=== PATIENT | female | born 1950 | race Caucasian/White ===

== ENCOUNTER 2017-06-05 06:39 | Outpatient (CLI) | END 2017-06-05 06:40 | disposition home or self-care (01) | LOC: CAR 06:39 | PROVIDERS: ATTEND Internal Medicine | DX: R06.02 Shortness of breath (principal); I10 Essential (primary) hypertension; E78.5 Hyperlipidemia, unspecified; R53.83 Other fatigue | CPT/HCPCS: 93005; 93010 ==

== ENCOUNTER 2017-06-06 06:44 | Outpatient (CLI) ==
--- NOTE | 2017-06-06 08:33 | STRESSMOD ---
Ordering Physician: CAMELIA CUEVAS Date of Test: 06/06/17 Medical History: SOB, HTN, DYSLIPIDEMIA, FATIGUE Current Medications: PROTONIX, NORVASC, XANAX, COZAAR, LASIX, METOPROLOL Physical Findings: S2, S2 Resting EKG: SINUS RHYTHM/NO ACUTE CHANGES Target Heart Rate: 129/152 STAGE MPH/GRADE HEART RATE BPM BLOOD PRESSURE mmhg RHYTHM S-T SEGMENT UP DOWN SYMPTOMS,COMMENTS At Rest 80 140/82 SR X NONE 1 1.7/0% 102 150/92 SR X NONE 2 1.7/5% 3 1.7/10% 4 2.5/12% 5 3.4/14% 6 4.2/16% 7 5.18% Immediately after 110 SR X SHORT OF BREATH Total Time: 5:13 Maximum Heart Rate Reached: 110 Reason for Termination: SHORT OF BREATH 3 MINUTES POST EXERCISE: HR 76 BPM, BP 140/90 MMHG INTERPRETATION: 93% OXYGEN SATURATION ON ROOM AIR WITH EXERCISE METS 3.6 1. NO EVIDENCE OF ISCHEMIA BY ST-T WAVE (HEART RATE - 80/BPM RESTING TO 110/BPM WITH EXERCISE) 2. NO CHEST PAIN OR CHEST DISCOMFORT 3. NO ARRHYTHMIAS 4. BLOOD PRESSURE RESPONSE: ADEQUATE NORMAL LEFT VENTRICULAR CONTRACTILITY--RESTING AND POST EXERCISE MTDD
--- NOTE | 2017-06-06 08:43 | ECHOSTRESS ---
Date of Exam: 06/06/17 Ordering Physician: CAMELIA CUEVAS Reason for Echo: SOB, HTN, DYSLIPIDEMIA, FATIGUE, STRESS TEST--NO ISCHEMIA M-Mode Normal Adult Results LV Dimensions Normal Adult Results AoV Opening excursions >1.6 LVEDD-base- 3.5-5.8 Ao root dimensions 2.0-3.7 LVESD-base- 3.1-4.6 L. Atrium dimensions 1.9-3.8 Post. Wall thickness 0.8-1.1 IV septum (thickness) 0.7-1.2 Post. Wall excursion 0.72-1.3 Septal motion Systolic motion R. Ventricular cavity 1.5-2.0 LVEF 60% Paradoxical septal wall motion 2-D: NORMAL LEFT VENTRICULAR CONTRACTILITY--RESTING AND POST EXERCISE M-MODE: MV: AV: TV: PV: CHAMBER SIZE: WALL MOTION: NORMAL LEFT VENTRICULAR CONTRACTILITY--RESTING AND POST EXERCISE PERICARDIUM: INTERPRETATION: 1. NORMAL LEFT VENTRICULAR CONTRACTILITY--RESTING AND POST EXERCISE MTDD
--- NOTE | 2017-06-06 11:26 | ECHO2D ---
Date of Exam: 06/05/17 Ordering Physician: CAMELIA CUEVAS Reason for Echo: SOB, HYPERTENSION, DYSLIPIDEMIA, FATIGUE M-Mode Normal Adult Results LV Dimensions Normal Adult Results AoV Opening excursions >1.6 >1.6 LVEDD-base- 3.5-5.8 5.4 Ao root dimensions 2.0-3.7 3.8 LVESD-base- 3.1-4.6 L. Atrium dimensions 1.9-3.8 4.3 Post. Wall thickness 0.8-1.1 1.2 IV septum (thickness) 0.7-1.2 1.2 Post. Wall excursion 0.72-1.3 NORMAL Septal motion NORMAL Systolic motion R. Ventricular cavity 1.5-2.0 NORMAL LVEF 60% 64% Paradoxical septal wall motion NORMAL 2-D : ENLARGED LEFT ATRIAL CAVITY--NORMAL LEFT VENTRICULAR CONTRACTILITY-- NORMAL VALVES--NO EFFUSION, NO THROMBUS M-MODE: MV: NORMAL AV: NORMAL TV: NORMAL PV: CHAMBER SIZE: ENLARGED LEFT ATRIAL CAVITY WALL MOTION: NORMAL PERICARDIUM: NORMAL INTERPRETATION: 1. LEFT VENTRICULAR HYPERTROPHY WITH ENLARGED LEFT ATRIAL CAVITY (4.3CM) 2. NORMAL LEFT VENTRICULAR CONTRACTILITY 3. NORMAL VALVES MTDD
== END 2017-06-06 06:45 | disposition home or self-care (01) ==
LOC: CAR 06:44
PROVIDERS: ATTEND Internal Medicine
DX: R06.02 Shortness of breath (principal); I10 Essential (primary) hypertension; E78.5 Hyperlipidemia, unspecified; R53.83 Other fatigue

== ENCOUNTER 2017-07-02 10:21 | Outpatient (CLI) ==
--- NOTE | 2017-07-04 08:34 | MAMMO ---
EXAM: Bilateral digital screening mammogram. History: Screening Comparison: Bilateral mammogram 11/15/2015 Findings: MLO and CC views of bilateral breasts demonstrate predominately fatty replaced breast par enchyma. Stable benign bilateral breast calcifications. Stable benign left breast lymph nodes. Th ere are no dominant masses, no suspicious microcalcifications and no architectural distortions Impression: Benign stable mammogram. Recommend followup routine screening mammography in 1 year. BIRADS 2
== END 2017-07-02 10:22 | disposition home or self-care (01) ==
LOC: RAD 10:21
PROVIDERS: ATTEND Internal Medicine
DX: Z12.31 Encounter for screening mammogram for malignant neoplasm of breast (principal)
CPT/HCPCS: 77067

== ENCOUNTER 2019-02-10 09:34 | Outpatient (CLI) | payer OTHER ==
--- NOTE | 2019-02-10 10:15 | DI ---
EXAM: Two views of the chest. History: Chest pain and trauma. Comparison: Chest radiograph 10/19/2014 Findings: Heart size is upper limits of normal. No focal consolidation. No appreciable pleural flu id and no pneumothorax. Atherosclerotic vascular calcifications. No acute osseous abnormalities. Impression: No acute cardiopulmonary process
--- NOTE | 2019-02-10 10:36 | DI ---
EXAM: Three views of the left ribs. History: Left rib pain and trauma. Comparison: Chest radiograph 02/10/2019 Findings: Atherosclerotic vascular calcifications. Left lung is free of consolidation. No left ple ural effusion and no left-sided pneumothorax. Mildly displaced fracture of the left lateral 4th rib. Impression: 1. Left lateral 4th rib fracture. 2. Gallstones
== END 2019-02-10 09:35 | disposition home or self-care (01) ==
LOC: RAD 09:34
PROVIDERS: ATTEND Internal Medicine
DX: R07.89 Other chest pain (principal); W19.XXXA Unspecified fall, initial encounter